=== PATIENT | male | born 1950 | race Caucasian/White ===

== ENCOUNTER 2016-12-13 12:56 | Emergency (ER) | payer OTHER ==
[~2016-12-13] VITALS: Ht 193 cm; Wt 106.6 kg
[2016-12-13] MEDS ORDERED: BACTRIM DS TAB1 EACH PO (13:02)
[2016-12-13] MEDS ORDERED: LIPITOR 20 MG T20 M1 PO (13:02)
[2016-12-13] MEDS ORDERED: ATENOLOL 25 MG25 M1 PO (13:02)
[2016-12-13 15:37] LABS: URINE BILIRUBIN NEGATIVE (Negative); URINE BLOOD 1+ (Negative); URINE COLOR YELLOW; URINE GLUCOSE-RANDOM* NEGATIVE (Negative); URINE KETONES NEGATIVE (Negative); URINE PROTEIN (DIPSTICK) NEGATIVE (Negative); URINE SPECIFIC GRAVITY <= 1.005 (1.003-1.035); URINE UROBILINOGEN 0.2 E.U./dl (0.2-1.0)
[2016-12-13 15:47] LABS: URINE LEUKOCYTES-REFLEX TRACE (Negative)
[2016-12-13 15:49] LABS: CASTS None Seen /LPF (None Seen); CRYSTALS None Seen /LPF (None Seen); SQUAMOUS None Seen /LPF (0-3); URINE RBC 0-2 Rare /HPF (0-2); URINE WBC-REFLEX 0-5 Rare /HPF (0-5)
[2016-12-13 17:35] VITALS: BP 146/77
== END 2016-12-13 17:35 | disposition short-term general hospital (02) ==
LOC: ER 12:56
PROVIDERS: Emergency Medicine
DX: R33.9 Retention of urine, unspecified (principal); N39.0 Urinary tract infection, site not specified